=== PATIENT | female | born 1985 | race Asian ===

== ENCOUNTER 2021-06-02 09:41 | Inpatient (IN) | payer OTHER ==
[2021-06-02 10:42] VITALS: BMI 26.4
[2021-06-02] MEDS ORDERED: Penicillin G Potassium 5 MILL.UNITS VIAL ONE (11:13)
[2021-06-02] MEDS ORDERED: NS w/ Oxytocin 30 units 500 ML ONE (11:13)
[2021-06-02] MEDS ORDERED: Methylergonovine 0.2 MG/ML VIAL IM PRN (11:34)
[2021-06-02] MEDS ORDERED: Butorphanol Tartrate 1 MG/ML VIAL SLOW IVP PRN (11:34)
[2021-06-02] MEDS ORDERED: Ibuprofen 800 MG TAB PO PRN (11:34)
[2021-06-02] MEDS ORDERED: Lidocaine 1% (PF) 30 ML VIAL SC PRN (11:34)
[2021-06-02] MEDS ORDERED: Ondansetron PF 4 MG/2 ML Vial IVP PRN (11:34)
[2021-06-02] MEDS ORDERED: Carboprost 250 MCG/ML AMP IM PRN (11:34)
[2021-06-02] MEDS ORDERED: HYDROcodone/Acetaminophen 5/325 mg Tablet PO PRN ×2 (11:34→22:04)
[2021-06-02] MEDS ORDERED: Promethazine HCl 25 MG/ML VIAL IM PRN (11:34)
[2021-06-02] MEDS ORDERED: hydrALAZINE 20 MG/ML VIAL SLOW IVP PRN ×2 (11:34→22:04)
[2021-06-02] MEDS ORDERED: Misoprostol 200 MCG TAB PR PRN (11:34)
[2021-06-02] MEDS ORDERED: Acetaminophen 500 MG TAB PO PRN (11:34)
[2021-06-02] MEDS ORDERED: Penicillin G Potassium 5 MILL.UNITS in Sodium Chloride 0.9% 100 ML IVPB SCH (11:45)
[2021-06-02] MEDS ORDERED: NS w/ Oxytocin 30 units 500 ML IVPB SCH (11:45)
[2021-06-02] MEDS ORDERED: NS w/ Oxytocin 30 units 500 ML IV SCH (11:45)
[2021-06-02 12:04] LABS: Hemoglobin 10.7 g/dL (12.0-15.5); Mean Corpuscular HGB CONC 32.4 g/dL (32.0-36.0); Mean Corpuscular Hemoglobin 29.6 pg (27.0-33.0); Mean Corpuscular Volume 91.2 fl (81.6-98.3); Mean Platelet Volume 12.2 fl (7.4-10.4); Platelet Count 231 10x3/uL (150-450); RBC Distribution Width 13.9 % (11.5-14.5); Red Blood Cell (RBC) Count 3.62 10x6/uL (3.90-5.03); White Blood Cell (WBC) Count 10.8 10x3/uL (3.5-10.5)
[2021-06-02 12:35] LABS: Hep B Surf Ag Non-Reactive S/CO (NonReactive); Syphilis Antibody Nonreactive (Nonreactive); Syphilis Antibody Index 0.05 S/CO (<1.00 Non-Reactive)
[2021-06-02 12:45] LABS: HBSAg Index 0.15 S/CO (0-0.99)
[2021-06-02 14:42] LABS: SARS-CoV-2 NAA Rapid Test Not Detected (NotDetected)
[2021-06-02] MEDS: Penicillin G 2.5 MILL.units 2.5 MILL.UNITS in Premix Bag 1 BAG IVPB SCH (15:32)
[2021-06-02] MEDS ORDERED: Bisacodyl 10 MG SUPP PR PRN (22:04)
[2021-06-02] MEDS ORDERED: Docusate 100 MG CAP PO SCH ×2 (22:04→22:45)
[2021-06-02] MEDS ORDERED: Milk Of Magnesia 30 ML UDCUP PO PRN (22:04)
[2021-06-02] MEDS ORDERED: Boostrix 0.5 ML (Tdap) VIAL IM ONE (22:04)
[2021-06-02] MEDS ORDERED: Lanolin Ointment 7 GM TUBE TOP PRN (22:04)
[2021-06-02] MEDS: Ibuprofen 800 MG TAB PO SCH (22:41)
[2021-06-03] MEDS: Ibuprofen 800 MG TAB PO SCH ×3 (05:36→21:24)
[2021-06-03] MEDS: Ferrous Sulfate 325 MG TAB PO SCH ×2 (08:01→17:15)
[2021-06-03] MEDS: Penicillin G 2.5 MILL.units 2.5 MILL.UNITS in Premix Bag 1 BAG IVPB SCH (08:02)
[2021-06-03] MEDS: Docusate 100 MG CAP PO SCH ×2 (08:42→21:24)
[2021-06-04] MEDS: Ibuprofen 800 MG TAB PO SCH (05:30)
[2021-06-04 08:10] VITALS: BP 111/68; TEMP 98
[2021-06-04] MEDS: Ferrous Sulfate 325 MG TAB PO SCH (09:01)
[2021-06-04] MEDS: Docusate 100 MG CAP PO SCH (09:01)
== END 2021-06-04 11:15 | disposition home or self-care (01) | DRG 807 ==
LOC: CSHLD 09:41 → CSHPP 21:59
PROVIDERS: ADMIT Family Medicine; ATTEND Family Medicine
PROC: 10907ZC Drainage of Amniotic Fluid, Therapeutic from Products of Conception, Via Natural or Artificial Opening (ICD-10-PCS; principal; 2021-06-02)
PROC: 10E0XZZ Delivery of Products of Conception, External Approach (ICD-10-PCS; 2021-06-02)
PROC: 0HQ9XZZ Repair Perineum Skin, External Approach (ICD-10-PCS; 2021-06-02)
DX: O99.824 Streptococcus B carrier state complicating childbirth (principal); Z37.0 Single live birth; O99.12 Other diseases of the blood and blood-forming organs and certain disorders involving the immune mechanism complicating childbirth; O70.0 First degree perineal laceration during delivery; Z3A.40 40 weeks gestation of pregnancy; K90.0 Celiac disease; Z20.822 Contact with and (suspected) exposure to COVID-19
CPT/HCPCS: 85027; 86780; 86850; 86900; 86901; 87340; J0595; J2540; J2590; J3490; U0002

== ENCOUNTER 2023-05-03 06:00 | Inpatient (IN) | payer OTHER ==
[2023-05-03] MEDS: Lactated Ringer's 1,000 ML IV SCH (12:27)
[2023-05-03 12:44] VITALS: BMI 25.7
[2023-05-03] MEDS ORDERED: Oxytocin 30 units/NS 500 ML 500 ML ONE (12:51)
[2023-05-03] MEDS ORDERED: fentaNYL/Ropivacaine Epidural 100 ML ONE (12:51)
[2023-05-03] MEDS ORDERED: Penicillin G Potassium 5 MILL.UNITS VIAL ONE (12:51)
[2023-05-03] MEDS ORDERED: Ondansetron PF 4 MG/2 ML Vial IVP PRN (12:58)
[2023-05-03] MEDS ORDERED: hydrALAZINE 20 MG/ML VIAL SLOW IVP PRN (12:58)
[2023-05-03] MEDS ORDERED: Lidocaine 1% (PF) 30 ML VIAL SC PRN (12:58)
[2023-05-03] MEDS ORDERED: Carboprost 250 MCG/ML AMP IM PRN (12:58)
[2023-05-03] MEDS ORDERED: HYDROcodone/Acetaminophen 5/325 mg Tablet PO PRN (12:58)
[2023-05-03] MEDS ORDERED: fentaNYL 50 mcg/mL 1 mL Vial SLOW IVP PRN (12:58)
[2023-05-03] MEDS ORDERED: Methylergonovine 0.2 MG/ML VIAL IM PRN (12:58)
[2023-05-03] MEDS ORDERED: Acetaminophen 500 MG TAB PO PRN (12:58)
[2023-05-03] MEDS ORDERED: Ibuprofen 800 MG TAB PO PRN (12:58)
[2023-05-03] MEDS ORDERED: Promethazine HCl 25 MG/ML VIAL IM PRN (12:58)
[2023-05-03] MEDS ORDERED: Misoprostol 200 MCG TAB PR PRN (12:58)
[2023-05-03] MEDS ORDERED: Tranexamic Acid 1,000 MG/10 ML VIAL IVP PRN (12:58)
[2023-05-03] MEDS ORDERED: Penicillin G Potassium 5 MILL.UNITS in Sodium Chloride 0.9% 100 ML IVPB SCH (13:00)
[2023-05-03] MEDS ORDERED: Oxytocin 30 units/NS 500 ML 500 ML IV SCH (13:00)
[2023-05-03] MEDS ORDERED: ePHEDrine Sulfate 50 MG/10 ML VIAL ONE (13:00)
[2023-05-03] MEDS ORDERED: Bupivacaine 0.25% HCL 30 ML VIAL ONE (13:00)
[2023-05-03 13:04] LABS: Hematocrit 35.1 % (34.9-44.5); Hemoglobin 11.8 g/dL (12.0-15.5); Mean Corpuscular HGB CONC 33.6 g/dL (32.0-36.0); Mean Corpuscular Hemoglobin 30.3 pg (27.0-33.0); Platelet Count 239 10x3/uL (150-450); RBC Distribution Width 12.7 % (11.5-14.5); White Blood Cell (WBC) Count 10.9 10x3/uL (3.5-10.5)
[2023-05-03 13:33] LABS: HIV (1/2) Antibody/Antigen Non-Reactive (NonReactive)
[2023-05-03 13:34] LABS: Syphilis Antibody Nonreactive (Nonreactive); Syphilis Antibody Index 0.03 S/CO (<1.00 Non-Reactive)
[2023-05-03 14:47] LABS: HBSAg Index 0.15 S/CO (0-0.99); Hep B Surf Ag - L&D Non-Reactive S/CO (NonReactive)
[2023-05-03] MEDS: Penicillin G 2.5 MILL.units 2.5 MILL.UNITS in Premix 1 BAG IVPB SCH (17:02)
[2023-05-04] MEDS ORDERED: HYDROcodone/Acetaminophen 5/325 mg Tablet PO PRN (02:16)
[2023-05-04] MEDS ORDERED: hydrALAZINE 20 MG/ML VIAL SLOW IVP PRN (02:16)
[2023-05-04] MEDS ORDERED: Preparation H Ointment 28 GM TUBE PR PRN (02:16)
[2023-05-04] MEDS ORDERED: Bisacodyl 10 MG SUPP PR PRN (02:16)
[2023-05-04] MEDS ORDERED: Benzocaine-Menthol 82.5 ML CAN TOP PRN (02:16)
[2023-05-04] MEDS ORDERED: Milk Of Magnesia 30 ML UDCUP PO PRN (02:16)
[2023-05-04] MEDS ORDERED: Boostrix 0.5 ML (Tdap) VIAL (>/=7 yrs of age) IM ONE (02:16)
[2023-05-04] MEDS: Lactated Ringer's 1,000 ML IV SCH (02:17)
[2023-05-04] MEDS: Penicillin G 2.5 MILL.units 2.5 MILL.UNITS in Premix 1 BAG IVPB SCH (02:17)
[2023-05-04] MEDS ORDERED: Ibuprofen 800 MG TAB PO SCH (06:00)
[2023-05-04] MEDS: Ferrous Sulfate 325 MG TAB PO SCH ×2 (07:21→17:26)
[2023-05-04] MEDS: Docusate 100 MG CAP PO SCH ×2 (08:04→23:58)
[2023-05-04] MEDS: Ibuprofen 800 MG TAB PO SCH ×2 (10:09→17:33)
[2023-05-05] MEDS: Ibuprofen 800 MG TAB PO SCH (01:00)
[2023-05-05 07:56] VITALS: BP 109/66; TEMP 98.1
== END 2023-05-05 11:45 | disposition home or self-care (01) | DRG 807 ==
LOC: CSHLD 11:32 → CSHPP 05-04 02:00
PROVIDERS: ADMIT Family Medicine; ATTEND Family Medicine
PROC: 10E0XZZ Delivery of Products of Conception, External Approach (ICD-10-PCS; principal; 2023-05-03)
PROC: 0HQ9XZZ Repair Perineum Skin, External Approach (ICD-10-PCS; 2023-05-03)
DX: O99.824 Streptococcus B carrier state complicating childbirth (principal); Z37.0 Single live birth; Z3A.39 39 weeks gestation of pregnancy; O70.0 First degree perineal laceration during delivery
CPT/HCPCS: 51702; 85027; 86780; 86850; 86870; 86900; 86901; 87340; 87389; J2540; J2590; J3490; J7120; S0020